=== PATIENT | male | born 1980 | race Caucasian/White ===

== ENCOUNTER 2016-12-21 08:27 | Emergency (ER) | payer OTHER ==
[~2016-12-21] VITALS: Ht 157.5 cm; Wt 76.9 kg
[2016-12-21 08:35] VITALS: Ht 157.5 cm; Wt 76.9 kg
--- NOTE | 2016-12-21 09:48 | ERD ---
ER Documentation Chief Complaint Date/Time DATE: 12/21/16 TIME: 09:44 Chief Complaint rright knee puncture wound, left ankle pain HPI 35-year-old male states that he was climbing a fence this morning and has a puncture wound to his right knee, complains of multiple body aches as well as left lateral ankle pain. Patient states that this injury occurred just a few hours ago, he has no difficulty with movement to the near the ankle. Patient's penetrating injuries in the right anterior knee, and he also comes with a left lateral ankle pain. His last tetanus shot was approximately 8 years ago. ROS All systems reviewed and are negative except as per history of present illness. Medications Home Meds Active Scripts Hydrocodone/Acetaminophen ([place] 5-325 Tablet) 1 Each Tablet, 1 TAB PO Q6H Y for PAIN, #7 TAB Prov:RANDOLPH UREÑA PA-C 12/21/16 Naproxen* (Naprosyn*) 500 Mg Tablet, 500 MG PO BID Y for PAIN AND/OR INFLAMMATION, #30 TAB Prov:RANDOLPH UREÑA PA-C 12/21/16 Cephalexin* (Keflex*) 500 Mg Capsule, 500 MG PO TID for 5 Days, CAP Prov:RANDOLPH UREÑA PA-C 12/21/16 Allergies Allergies: Coded Allergies: No Known Allergy (Unverified , 12/21/16) PMhx/Soc Medical and Surgical Hx: pt denies Medical Hx, pt denies Surgical Hx Hx Alcohol Use: No Hx Substance Use: No Hx Tobacco Use: No Smoking Status: Never smoker Physical Exam Vitals Vital Signs Date Time Temp Pulse Resp B/P Pulse Ox O2 Delivery O2 Flow Rate FiO2 12/21/16 08:35 98.5 73 18 129/70 99 Physical Exam General: Well-developed, well-nourished. The patient appears in no acute distress. HEENT: Head is normocephalic, atraumatic. No scleral icterus. Neck: Supple. Nontender. Lungs: Clear to auscultation. Normal air movement. Heart: Regular rate and rhythm. S1 and S2 are normal. No murmurs, gallops, or rubs. Abdomen: Nondistended. Extremities: Patient has a 2 cm penetrating laceration injury on the right anterior knee. There is no active bleeding, no foreign body seen. No tendon visible. He has full range of motion with right knee flexion and extension. There is left lateral ankle tenderness, no bony deformities. No overlying laceration. Neurologic: Alert and oriented 3. No focal deficits. Normal speech and gait. Skin: Normal turgor. No rash or lesions. Results 24 hrs Current Medications Medications (Trade) Dose Ordered Sig/Ava Route PRN Reason Start Time Stop Time Status Last Admin Dose Admin Diphtheria/ Tetanus/Acell Pertussis (Adacel) 0.5 ml ONCE ONCE IM* 12/21/16 10:00 12/21/16 10:01 DC 12/21/16 09:57 Cefazolin Sodium (Ancef) 1 gm ONCE ONCE IM 12/21/16 10:00 12/21/16 10:01 DC 12/21/16 09:55 Lidocaine (Xylocaine 2% (Mdv) 20 ml) 20 ml ONCE ONCE INJ 12/21/16 10:00 12/21/16 10:01 DC Acetaminophen/ Hydrocodone Bitart ([place] (5/325)) 1 tab ONCE ONCE PO 12/21/16 10:30 12/21/16 10:31 DC 12/21/16 10:49 Ibuprofen (Motrin) 600 mg ONCE ONCE PO 12/21/16 10:30 12/21/16 10:31 DC 12/21/16 10:49 PROCEDURE: Left ankle series. CLINICAL INDICATION: Left ankle pain after trauma TECHNIQUE: Three views of the left ankle were performed. COMPARISON: None. FINDINGS: There is normal mineralization and alignment of the bones of the left ankle. No acute fracture or dislocation is seen. Joint spaces are well maintained. No osteophytes or erosions are identified. No joint effusion is identified. The soft tissues are within normal limits. IMPRESSION: 1. Unremarkable left ankle radiograph series. RPTAT: AA .Garry Lepe MD, Date Time Electronically viewed and signed by .Garry Lepe MD, on 2016 10:46 .B/ CC: RANDOLPH UREÑA PA-C PROCEDURE: Right knee series. CLINICAL INDICATION: Right knee pain after trauma. Puncture wound. TECHNIQUE: Three views of the right knee are available for review. COMPARISON: None available FINDINGS: There is normal mineralization and alignment of the bones of the right knee. No acute fracture or dislocation is identified. No joint effusion is seen. Overlying soft tissues are unremarkable. No radiopaque foreign bodies seen. IMPRESSION: 1. Unremarkable right knee x-ray series. RPTAT: AA .Garry Lepe MD, Date Time Electronically viewed and signed by .Garry Lepe MD, on 2016 10:45 .B/ Procedures/MDM ED course: 1. Tdap is updated 2. Ancef 1 g IM was administered. Laceration Repair by me: Patient was verbally consented Anesthesia: 1% lidocaine locally Location: Right knee Tendon/Joint/Nerves: No injury Foreign body: None detected after copious irrigation and exploration Technique: Simple Interrupted Sutures 3 using 4-0 Prolene Complexity: No subcutaneous sutures/mucosal repair/ edge excision Post Closure Length: 2 cm Patient's bleeding was easily controlled in the department and there is no indication of anemia. No evidence of compartment syndrome, neurologic injury, vascular injury, open joint, tendon laceration, or foreign body. Patient is appropriate for outpatient follow up. 48 hour wound check. Scar minimization instructions given. This patient's right knee was dressed with clean dressing, wrapped with an Margarito bandage. He was given crutches to be weightbearing as tolerated. MDM: 35-year-old male comes in with a laceration to the right knee from penetrating injury from a metal bar, laceration was closed without any complications. X-rays of the right knee were obtained, there is no evidence of fracture, foreign body. He has full range of motion with his right knee flexion extension, there is no evidence of patella tendon rupture, quad tendon rupture, other differentials considered include a ligamentous injury, tear, meniscal injury, versus tibial plateau fracture. X-rays were also obtained in the left ankle, negative. Departure Diagnosis: Primary Impression: Laceration Additional Impression: Left ankle injury Condition: Good RANDOLPH UREÑA PA-C Dec 21, 2016 09:48
[2016-12-21] MEDS ORDERED: CEFAZOLIN 1 GM INJ IM ONE (10:00)
[2016-12-21] MEDS ORDERED: LIDOCAINE 2% (MDV) 20 ML INJ INJ ONE (10:00)
[2016-12-21] MEDS ORDERED: DIPHTH/TET/ACEL PERTUSS (ADULT) 0.5 ML VIAL IM* ONE (10:00)
[2016-12-21] MEDS ORDERED: HYDROCODONE/APAP (5/325) TAB PO ONE (10:30)
[2016-12-21] MEDS ORDERED: IBUPROFEN 600 MG TAB PO ONE (10:30)
--- NOTE | 2016-12-21 10:45 | RADRPT ---
PROCEDURE: Right knee series. CLINICAL INDICATION: Right knee pain after trauma. Puncture wound. TECHNIQUE: Three views of the right knee are available for review. COMPARISON: None available FINDINGS: There is normal mineralization and alignment of the bones of the right knee. No acute fracture or d islocation is identified. No joint effusion is seen. Overlying soft tissues are unremarkable. No r adiopaque foreign bodies seen. IMPRESSION: 1. Unremarkable right knee x-ray series. RPTAT: AA .Garry Lepe MD, MD Date Time Electronically viewed and signed by .Garry Lepe MD, MD on 12/21/2016 10:45 .B/
--- NOTE | 2016-12-21 10:46 | RADRPT ---
PROCEDURE: Left ankle series. CLINICAL INDICATION: Left ankle pain after trauma TECHNIQUE: Three views of the left ankle were performed. COMPARISON: None. FINDINGS: There is normal mineralization and alignment of the bones of the left ankle. No acute fracture or d islocation is seen. Joint spaces are well maintained. No osteophytes or erosions are identified. N o joint effusion is identified. The soft tissues are within normal limits. IMPRESSION: 1. Unremarkable left ankle radiograph series. RPTAT: AA .Garry Lepe MD, MD Date Time Electronically viewed and signed by .Garry Lepe MD, MD on 12/21/2016 10:46 .B/
[2016-12-21] MEDS ORDERED: HYDR-906 PO (11:06)
[2016-12-21] MEDS ORDERED: CEPH-443 PO (11:06)
[2016-12-21] MEDS ORDERED: NAPR-260 PO (11:06)
[2016-12-21 11:22] VITALS: TEMP 98.5
== END 2016-12-21 11:22 | disposition home or self-care (01) ==
LOC: FTE 08:27
DX: S81.011A Laceration without foreign body, right knee, initial encounter (principal); S99.912A Unspecified injury of left ankle, initial encounter; W26.8XXA Contact with other sharp object(s), not elsewhere classified, initial encounter; Y92.9 Unspecified place or not applicable; Z23 Encounter for immunization
CPT/HCPCS: 12001; 73562; 73610; 90715; J0690; Z7610; 90471; 96372

== ENCOUNTER 2017-11-19 00:26 | Emergency (ER) | END 2017-11-19 02:18 | disposition left against medical advice (07) ==